=== PATIENT | female | born 1975 | race Caucasian/White ===

== ENCOUNTER 2018-09-07 05:35 | Day surgery (SDC) | payer OTHER ==
[2018-09-07] MEDS ORDERED: ACETAMINOPHEN 1,000 MG/100 ML BTL IVPB ONE (06:00)
[2018-09-07] MEDS ORDERED: RINGERS SOLUTION,LACTATED 1,000 ML IV ONE ×2 (06:00→07:44)
[2018-09-07] MEDS ORDERED: HYDROCODONE/APAP 5/325MG TABLET PO ONE (08:28)
--- NOTE | 2018-09-07 12:01 | Operative Note ---
DATE OF SURGERY: 09/07/2018 SURGEON: Thang Ruelas DO REFERRING PHYSICIAN: JANET Edwards PREOPERATIVE DIAGNOSIS: Trigger finger of the right thumb. POSTOPERATIVE DIAGNOSIS: Trigger finger of the right thumb. OPERATION: Tenotomy 1 kelsey right thumb using a 3.5 loupe magnification. ANESTHESIA: General. PROCEDURE: This 43-year-old female was taken to the operating room and placed in the supine position on the operating room table. General anesthesia was induced. The right hand and upper extremity were prepped with Hibiclens and draped in the usual sterile fashion. It was exsanguinated and the tourniquet inflated to 250 mmHg. An incision was made in the flexor crease of the MCP joint of the right thumb on the palmar surface. Dissection was carried down through the skin and subcutaneous tissue. The neurovascular structures were protected and the proximal edge of the A1 kelsey was easily identified. This was incised from its proximal to its distal margin under direct vision. With the sheath open, the tendon could be seen to be passing freely through the sheath without any evidence of impingement. Nodularity of the FPL was noted in the tendon. The wound was then irrigated and the skin closed with interrupted 6-0 nylon suture. Sterile dressings were applied and the patient was taken to the recovery room in satisfactory condition. GROSS PATHOLOGY: This patient demonstrated nodularity of the FPL and once the kelsey was opened, the tendon passed freely without any evidence of impingement. HOANGD
== END 2018-09-07 08:40 | disposition home or self-care (01) ==
LOC: SUR 05:35
PROVIDERS: ATTEND Orthopaedic Surgery
DX: M65.311 Trigger thumb, right thumb (principal)
CPT/HCPCS: 81025; J7120